=== PATIENT | female | born 1965 | race Caucasian/White ===

== ENCOUNTER → 2016-08-26 | Outpatient (CLI) | payer OTHER, MEDICAID | LOC: BMCIMAGING 12:31 | PROVIDERS: ATTEND Nurse Practitioner Family | DX: N64.3 Galactorrhea not associated with childbirth (principal); N64.52 Nipple discharge; Z79.899 Other long term (current) drug therapy | CPT/HCPCS: G0204 ==

== ENCOUNTER 2017-02-28 08:55 | Inpatient (IN) | payer OTHER, MEDICAID ==
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
[2017-02-28] MEDS ORDERED: ONDANSETRON 4 MG/2 ML VIAL IVP PRN (13:20)
[2017-02-28] MEDS ORDERED: ONDANSETRON DISINTEGRATING 4 MG TAB PO PRN (13:20)
[2017-02-28] MEDS ORDERED: ALBUTEROL INH PREPACK MDI TAKEHOME PRN (13:57)
[2017-02-28] MEDS ORDERED: IBUPROFEN 800 MG TAB PO PRN ×2 (13:57→15:07)
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
[2017-02-28] MEDS ORDERED: ALBUTEROL 200 PUFFS/18 GM MDI IH PRN (14:50)
[2017-02-28] MEDS: LISINOPRIL/HCTZ 20/12.5MG 1 EA TAB PO SCH (15:05)
[2017-02-28] MEDS: NICOTINE 21 MG/24 HR PATCH TD SCH (15:07)
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
[2017-03-01] MEDS: ACETAMINOPHEN 325 MG TAB PO PRN ×3 (03:56→20:49)
[2017-03-01] MEDS: NICOTINE 21 MG/24 HR PATCH TD SCH (07:39)
[2017-03-01] MEDS ORDERED: ENOXAPARIN 30 MG/0.3 ML SYR SC SCH (09:00)
[2017-03-01] MEDS: LISINOPRIL/HCTZ 20/12.5MG 1 EA TAB PO SCH (14:52)
--- NOTE | 2017-03-01 18:31 | HOSPPROG ---
Hospitalist Progress Note Assessment/Plan: DIAGNOSES: -Acute fibular fracture in the leg with prior tibia trauma and deformity related to that -gait instability and inability a ambulate acute on chronic ; she is chronically using a walker for ambulation and now having more difficulty due to her pain - homelessness -Bipolar and schizoaffective disorder PLANS: -Per Orthopedics weight-bearing as tolerated -We are looking to try and see if we can get her in to retirement facility for further rehabilitation to get her back on her feet and she is hoping through [facility] agencies to get into assisted living after that SUBJECTIVE: still with pain in her leg unchanged from previous, no other new symptoms OBJECTIVE Vitals reviewed: stable without fever Exam: alert oriented skin warm dry color ok resps not labored lungs clear BSs heart regular abd soft nondistended nontender, bowel sounds present limbs warm, no edema iv site ok Objective: Vital Signs Temp Pulse Resp BP Pulse Ox 36.9 C 76 16 111/78 96 03/01/17 16:00 03/01/17 16:00 03/01/17 16:00 03/01/17 16:00 03/01/17 16:00 02/28/17 03/01/17 03/02/17 06:59 06:59 06:59 Intake Total 200 Output Total 900 Balance -900 200 ICD10 Worksheet Patient Problems: Problems Problem Status Onset Fibula fracture Acute Laceration of elbow Acute Altered mental status Acute Bipolar disease, manic Acute Urinary tract infection Acute
[2017-03-02] MEDS: traMADol 50 MG TAB PO PRN ×2 (00:14→09:06)
[2017-03-02] MEDS: ACETAMINOPHEN 325 MG TAB PO PRN (05:15)
[2017-03-02] MEDS: NICOTINE 21 MG/24 HR PATCH TD SCH (09:02)
[2017-03-02] MEDS: ENOXAPARIN 40 MG/0.4 ML SYR SC SCH (09:04)
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
[2017-03-02] MEDS: LISINOPRIL/HCTZ 20/12.5MG 1 EA TAB PO SCH (14:21)
--- NOTE | 2017-03-02 15:42 | ASMTCMCOM ---
CM Note CM Note Notes: Physical Therapy is recommending SNF rehab for discharge.Spoke with patient who is willing to go fo r SNF rehab in a facility in [place]. Patient is transferring all her care to [place] from [place]. [facility] to [facility]. Spoke with patient's case repairer with [facility], Randell [place]. (faxed Randell a copy of the release of information patient s igned @ [phone]) He supports the plan for patient to complete her rehab in [place] and states they are searching for an assisted living facil ity for patient to live.. PT/OT evaluations faxed separately due to [employer] attachment service not working today.[facility] program and requests we contact them as soon as we have a d/c date. CM will follow. Date Signed: 03/02/2017 03:31 PM Electronically Signed By:Ana Cristina Juares
[2017-03-03] MEDS: traMADol 50 MG TAB PO PRN (08:15)
[2017-03-03] MEDS: NICOTINE 21 MG/24 HR PATCH TD SCH (08:15)
[2017-03-03] MEDS: ENOXAPARIN 40 MG/0.4 ML SYR SC SCH (08:15)
--- NOTE | 2017-03-03 11:47 | ASMTCMCOM ---
CM Note CM Note Notes: Spring from [facility] contacted CM stating that Pt's Mother would like her placed there. Spring also states mother, Naomy, would like to be MDPOA. Need to discuss this w/ Pt. Faxed new referral to [facility] today. Pt. needs one more midnight and will d/c tomorrow to either [facility] or [facility]. Still no response from [facility] or [facility]. Date Signed: 03/03/2017 11:47 AM Electronically Signed By:Мария Granda
[2017-03-03] MEDS: LISINOPRIL/HCTZ 20/12.5MG 1 EA TAB PO SCH (14:28)
--- NOTE | 2017-03-03 15:59 | HOSPPROG ---
Hospitalist Progress Note Assessment/Plan: 51-year-old female admitted because of a right leg fracture and instability of gait. Patient been evaluated by Orthopedics and noted to have a fibular fracture which is stable. She can bear weight as tolerated according to Orthopedics. Patient has no other complaints of shortness of breath chest pain nausea or vomiting. Today during PT was noted the joint was clicking. I have unwrapped the knee from the splint and moved the knee. There was some clicking and stiffness but with repetitive flexion extension motions of the knee the clicking and stiffness resolved. The patient felt improved. -acute right leg fibular fracture with a history of prior tibial trauma and deformity of the right knee. Per Orthopedics the patient can bear weight as tolerated. -gait instability and AMB inability to ambulate on acute and chronic basis secondary to the right knee deformity and now the fracture. -bipolar and schizoaffective disorder which are currently stable -homeless social situation -disposition: We are seeking a resolution of her social situation. At this time PT and OT is working with her and she can be medically discharged when able to a facility of assistance or home care with some assistance. Subjective: Reports stiffness and clicking of the right knee with ambulation during PT. No complaints of chest pain shortness of breath nausea vomiting or fever Objective: Vital Signs Temp Pulse Resp BP Pulse Ox 36.3 C 74 16 98/68 L 94 03/03/17 07:18 03/03/17 07:18 03/03/17 07:18 03/03/17 08:20 03/03/17 07:18 03/02/17 03/03/17 03/04/17 05:59 05:59 05:59 Intake Total 300 Output Total 500 Balance 300 -500 - Time Spent With Patient Time Spent with Patient: greater than 35 minutes Time Spent with Patient: Greater than 35 minutes spent on this patients care, greater than 50% of time spent counseling, educating, and coordinating care regarding the above mentioned plan. - Pending Discharge Pending Discharge Within 24 Hours: No Pending Discharge Within 48 Hours: Yes Pending Discharge Date: 03/05/17 Pending Discharge Time: 11:00 - Physical Exam Constitutional: no apparent distress, appears nourished Eyes: PERRL, anicteric sclera Ears, Nose, Mouth, Throat: moist mucous membranes, hearing normal Cardiovascular: regular rate and rhythym, no murmur, rub, or gallop Respiratory: no respiratory distress, no rales or rhonchi, clear to auscultation Gastrointestinal: normoactive bowel sounds, soft, non-tender abdomen, no palpable masses Musculoskeletal: asymmetric calves, abnormal gait, other (Chronic deformity of the right knee. I unwrapped the splint and there was clicking and stiffness of the right knee which cleared with passive and active range of motion of the knee. The fibula is tender with a slight degree of ecchymosis proximally PET the ankle and foot are normal.) Neurologic: AAOx3, CN II-XII Intact Psychiatric: interacting appropriately ICD10 Worksheet Patient Problems: Problems Problem Status Onset Fibula fracture Acute Laceration of elbow Acute Altered mental status Acute Bipolar disease, manic Acute Urinary tract infection Acute
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
[2017-03-04] MEDS: traMADol 50 MG TAB PO PRN ×3 (04:51→17:38)
[2017-03-04] MEDS: ENOXAPARIN 40 MG/0.4 ML SYR SC SCH (08:09)
[2017-03-04] MEDS: NICOTINE 21 MG/24 HR PATCH TD SCH (08:09)
[2017-03-04] MEDS: ACETAMINOPHEN 325 MG TAB PO PRN (08:09)
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
[2017-03-04] MEDS: LISINOPRIL/HCTZ 20/12.5MG 1 EA TAB PO SCH (16:19)
[2017-03-05 00:37] VITALS: RESP 16
[2017-03-05 05:06] LABS: % IMMATURE GRANULYOCYTES 0.3 % (0.0-1.1); ABSOLUTE IMMATURE GRANULOCYTES 0.02 10^3/uL (0.00-0.10); ADD DIFF? NO; ADD MORPH? NO; ADD SCAN? NO; ATYPICAL LYMPHOCYTE FLAG 10 (0-99); FRAGMENT RBC FLAG 0 (0-99); HEMOGLOBIN 11.6 g/dL (12.6-16.3); LEFT SHIFT FLG 0 (0-99); LIPEMIA HEMOLYSIS FLAG 90 (0-99); MEAN CELL HEMOGLOBIN 30.9 pg (27.9-34.1); MEAN CELL HEMOGLOBIN CONCENTR. 34.1 g/dL (32.4-36.7); MEAN CELL VOLUME 90.7 fL (81.5-99.8); MEAN PLATELET VOLUME 8.6 fL (8.7-11.7); PLATELET CLUMPS FLAG 0 (0-99); PLATELET COUNT 332 10^3/uL (150-400); RED BLOOD CELL COUNT 3.75 10^6/uL (4.18-5.33); RED CELL DISTRIBUTION WIDTH 11.9 % (11.5-15.2)
[2017-03-05 05:18] LABS: ALANINE AMINOTRANSFERASE 43 IU/L (9-52); ALBUMIN 3.9 g/dL (3.5-5.0); ALKALINE PHOSPHATASE 66 IU/L (38-126); ANION GAP 11 mEq/L (8-16); ASPARTATE AMINOTRANSFERASE 23 IU/L (14-46); BILIRUBIN,TOTAL 0.3 mg/dL (0.1-1.4); CARBON DIOXIDE 24 mEq/l (22-31); CHLORIDE 105 mEq/L (97-110); CREATININE 0.8 mg/dL (0.6-1.0); GLOMERULAR FILTRATION RATE > 60; GLUCOSE 87 mg/dL (70-100); POTASSIUM 4.4 mEq/L (3.5-5.2); SODIUM 140 mEq/L (134-144); TOTAL PROTEIN 6.5 g/dL (6.3-8.2)
[2017-03-05] MEDS: ENOXAPARIN 40 MG/0.4 ML SYR SC SCH (08:39)
[2017-03-05] MEDS: NICOTINE 21 MG/24 HR PATCH TD SCH (09:18)
[2017-03-05] MEDS: traMADol 50 MG TAB PO PRN (10:49)
[2017-03-05 12:37] VITALS: PULSE 83; TEMP 98.8; O2SAT 81
--- NOTE | 2017-03-05 13:00 | PDIAF ---
- Diagnosis Code Status: Full Code - Medication Management Discharge Medications: Medications to Continue on Transfer Albuterol Sulfate [Ventolin Hfa] 4 puffs IH TID PRN 02/28/17 [Last Taken Unknown ] Ibuprofen [Motrin (*)] 800 mg PO 06,1415,22 PRN 02/28/17 [Last Taken 02/28/17] Ketorolac Tromethamine [Toradol 30 mg/ml Inj (*)] 30 mg IM Q7D 02/28/17 [Last Taken 02/24/17] Lisinopril/Hctz 20/12.5MG [Zestoretic/Prinzide 20/12.5MG (*)] 1 ea PO DAILY@ 1415 02/28/17 [Last Taken 02/27/17] Nicotine [Nicoderm Cq 21 mg (*)] 21 mg TD DAILY 02/28/17 [Last Taken 02/28/17] Schizophrenia Med Unknown 1 ea MISC Q30D 02/28/17 [Last Taken 02/17/17] Discharge Medications: Refer to the Discharge Home Medication list for PRN reason. - Orders Services needed: Registered Nurse, Certified Boilermaker, Physical Therapy, Occupational Therapy Diet Recommendation: no restrictions on diet Diet Texture: Regular Texture Diet, Thin Liquids Wound Care Instructions: daily wound care to left elbow, cleanse and apply bandage Date to Remove Sutures/Ginger: 03/11/17 Activity/Weight Bearing Restrictions: May weight bear as tolerated on right leg. The fibular fracture is stable and though tender and painful to some degree, it does not limit weight bearing. Use an SHWETA dressing to the leg for support if the patient desires - Labs/Radiology CBC Date: 03/18/17 CMP Date: 03/18/17 - Follow Up Care Current Providers and Referrals: [facility],. [Clinic] - As per Instructions Debi Arnold MD [Medical Doctor] - 03/19/17
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
--- NOTE | 2017-03-05 14:54 | ASMTCMCOM ---
CM Note CM Note Notes: Pt medically stable for d/c, approved PASRR received. Orders faxed, RN October to call report. Pt mother updated. Date Signed: 03/05/2017 02:53 PM Electronically Signed By:Jennifer Pizano
[2017-03-05] MEDS: LISINOPRIL/HCTZ 20/12.5MG 1 EA TAB PO SCH (15:00)
[2017-03-05 15:01] VITALS: BP 98/70
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
== END 2017-03-05 15:36 | DRG 563 ==
LOC: EDUNIT# → INTOOBSV 13:20 → F3N 14:30 → OBSVTOIN 03-01 21:39
PROVIDERS: ADMIT Internal Medicine; ATTEND Internal Medicine
PROC: 0HQEXZZ Repair Left Lower Arm Skin, External Approach (ICD-10-PCS; principal; 2017-03-01)
DX: S82.401A Unspecified fracture of shaft of right fibula, initial encounter for closed fracture (principal); S51.012A Laceration without foreign body of left elbow, initial encounter; V03.99XA Pedestrian with other conveyance injured in collision with car, pick-up truck or van, unspecified whether traffic or nontraffic accident, initial encounter; M25.562 Pain in left knee; I10 Essential (primary) hypertension; F25.0 Schizoaffective disorder, bipolar type; F41.9 Anxiety disorder, unspecified; J45.909 Unspecified asthma, uncomplicated; F17.210 Nicotine dependence, cigarettes, uncomplicated; Z87.820 Personal history of traumatic brain injury; Z59.0 Homelessness
CPT/HCPCS: 92507-GN; 92523-GN; 92610-GN; 97116-GP; 97161-GP; 97165-GO; 97535-GO; G0378; G8978-GP-CK; G8979-GP-CI; G8987-GO-CI; G8988-GO-CI; G9168-GN-CK; G9169-GN-CJ; G9170-GN-CJ; J1650